=== PATIENT | male | born 1930 ===

== ENCOUNTER → 2017-09-22 | Outpatient (CLI) | payer OTHER | LOC: BHLMT 10:45 | PROVIDERS: ATTEND Internal Medicine Interventional Cardiology | DX: I35.0 Nonrheumatic aortic (valve) stenosis (principal) | CPT/HCPCS: 93306-PO ==

== ENCOUNTER 2017-12-14 15:54 | Emergency (ER) | payer OTHER ==
--- NOTE | 2017-12-14 16:34 | CPEKG ---
Heart Rate: 85 RR Interval: 706 QRSD Interval: 148 QT Interval: 440 QTC Interval: 524 QRS Keyes: 66 T Wave Keyes: -23 EKG Severity - ABNORMAL ECG - EKG Impression: ATRIAL FIBRILLATION EKG Impression: RIGHT BUNDLE BRANCH BLOCK Electronically Signed By: Fabiana Sanchez 14-Dec-2017 23:04:41
--- NOTE | 2017-12-14 16:44 | EDPHY ---
H & P Time Seen by Provider: 12/14/17 16:37 HPI/ROS: CHIEF COMPLAINT: Swollen and weeping legs with a rash HISTORY OF PRESENT ILLNESS: The patient is an 87 y/o male with a history of congestive heart failure complaining of bilateral leg swelling over the past few days. He has a history of bilateral pedal edema and the left lower extremity is usually more swollen than the right. The swelling usually increases during the day and nearly resolved at night. However, a few days ago , he developed increasing swelling in both legs and the swelling did not decreased at night. Today, he noticed both legs were weeping. He has associated pain in his legs, and mild shortness of breath on exertion. Able to do his normal activities and is not limited by the shortness of breath. He denies any other associated symptoms. He takes Lasix 20 mg every morning. He denies any recent change in his Lasix. He recently started taking testosterone. REVIEW OF SYSTEMS: A 10 point review of systems was performed and is negative with the exception of the elements mentioned in the history of present illness. 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 rectum removal for colon cancer, hernia causing penis retraction Social History: Son at bedside, lives in [place], lives alone Smoking Status: Current every day smoker Physical Exam: General Appearance: Alert, pleasant Eyes: Pupils equal and round, no conjunctival pallor ENT, Mouth: Mucous membranes moist Neck: Normal inspection Respiratory: Lungs are clear to auscultation Cardiovascular: Regularly irregular heart rate, 2/6 systolic murmur Gastrointestinal: Abdomen is soft and non-tender Neurological: A&O, nonfocal exam Skin: Warm and dry, no rash Extremities: Right lower extremity has 2+ pedal edema to ankle and calf. Left lower extremity has 3+ pedal edema to ankle and calf. Bilaterally the calf and feet are diffusely erythematic with a petechial rash to the anterior aspect of the calf. Vascular: Left great toe refill is brisk, unable to palpate pedal pulses Psychiatric: Mood and affect normal Constitutional: Initial Vital Signs Temperature (C) 36.7 C 12/14/17 16:09 Heart Rate 80 12/14/17 16:09 Respiratory Rate 19 12/14/17 16:09 Blood Pressure 135/56 H 12/14/17 16:09 O2 Sat (%) 95 12/14/17 16:09 O2 Delivery Mode Room Air Allergies/Adverse Reactions: No Known Allergies Allergy (Verified 12/14/17 16:07) Home Medications: Medication Instructions Recorded Brimonidine/Timolol [Combigan (*)] 1 drop RTEYE BID 08/31/15 Calcium Carb W/Vit D [Calcium Carb 500 mg PO DAILY 08/31/15 W/Vit D 500/200 (*)] Cholecalciferol Vit D3 [Vitamin D3 5,000 units PO DAILY 08/31/15 (*)] Ezetimibe/Simvastatin [Vytorin 1 each PO DAILY 08/31/15 10-20 mg Tablet] Furosemide [Lasix 20 MG (*)] 20 mg PO DAILY 08/31/15 Furosemide [Lasix 20 MG (*)] 20 mg PO DAILY@1300 PRN 08/31/15 Herbals/Supplements -Info Only 1 ea PO DAILY 08/31/15 Multivitamins [Multivitamin (*)] 1 each PO DAILY 08/31/15 Nebivolol HCl [Bystolic 5 mg (*)] 10 mg PO DAILY 08/31/15 Pioglitazone HCl [Actos 15mg (*)] 45 mg PO DAILY 08/31/15 Tamsulosin HCl [Flomax 0.4 MG (*)] 0.4 mg PO DAILY 08/31/15 Vit C/Dl-E AC/Lut/Copper/Znox 1 each PO BID 08/31/15 [Preservision Softgel] Aspirin [Aspirin 81mg (*)] 81 mg PO DAILY #0 tab 09/02/15 Atorvastatin Calcium 12/14/17 Cephalexin [Keflex (*)] 500 mg PO TID #30 cap 12/14/17 Eliquis 12/14/17 Testosterone 12/14/17 Medical Decision Making - Diagnostics EKG Interpretation: EKG interpreted by me reveals atrial fibrillation, rate 85, right bundle branch block, no ST/T changes. Interpretation: atrial fibrillation, right bundle branch block Imaging Results: Extremity Venous Study 12/14/17 17:39 Impression: 1. No deep venous thrombosis. 2. Diffuse edema and small Brandon's cyst. Findings discussed with Emergency Department physician, Fabiana Sanchez M.D., on December 14, 2017 at 1901. ED Course/Re-evaluation: The patient presents with swollen and weeping legs with a rash to the anterior aspect of both legs. He has a history of congestive heart failure. On exam, pedal pulses were unable to be palpated. Plan for ultrasound for pedal pulses and labs. Clinical presentation consistent with worsening congestive heart failure, possibly cellulitis in the left lower extremity. Refuses IV Lasix. Lasix will be available for this patient at any time if he changes his mind. 1740: Bilateral pedal pulses were obtained bilaterally via Doppler. The patient continues to refuse Lasix. Plan for further analysis of his left leg for possible DVT at patient's request. I doubt that he has a DVT, given that he is on Eliquis. 184: Ultrasound was negative for DVT. Results discussed with the patient and his son. Bilateral pedal edema secondary to congestive heart failure. I will increase his Lasix to 20 mg twice daily. In addition, he may have an early left lower extremity cellulitis, so Keflex prescribed. 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 He will return to the emergency department for worsening symptoms or any concerns. Differential Diagnosis: Differential diagnosis includes does not limited to pulmonary edema, abscess, DVT, ulcer. - Data Points Laboratory Results: Laboratory Results 12/14/17 16:40 12/14/17 16:40 Medications Given: Discontinued Medications Cephalexin HCl (Keflex) 500 mg PO EDNOW ONE PRN Reason: Protocol Stop: 12/14/17 19:26 Last Admin: 12/14/17 19:51 Dose: 500 mg Furosemide (Lasix Injection) 20 mg IVP EDNOW ONE Stop: 12/14/17 17:01 Last Admin: 12/14/17 17:36 Dose: Not Given Departure - Departure Disposition: Home, Routine, Self-Care Clinical Impression: Pedal edema Cellulitis Qualifiers: Site of cellulitis: extremity Site of cellulitis of extremity: lower extremity Laterality: left Qualified Code(s): L03.116 - Cellulitis of left lower limb Condition: Good Instructions: Heart Failure (ED), Cellulitis (ED) Additional Instructions: Increase your furosemide to 1 tablet twice daily. Take the 1st dose in the morning and the 2nd dose at 4:00 p.m.. Take the increased dose on Wednesday and . Take the Keflex as prescribed. You may have an early skin infection called cellulitis. Return for fever, increased swelling, shortness of breath or any concerns. Referrals: CHRISTINA SERVIN [Primary Care Provider] - As per Instructions Prescriptions: Cephalexin [Keflex (*)] 500 mg PO TID #30 cap Report Scribed for: Fabiana Sanchez Report Scribed by: Alisha London Date of Report: 12/14/17 Time of Report: 16:44 Physician Review and Approval Statement: 12/14/17 16:44 Portions of this note were transcribed by a medical typist. I personally performed a history, physical exam, medical decision making, and confirmed accuracy of information the transcribed note.
[2017-12-14 16:53] LABS: PLATELET COUNT 103 10^3/uL (150-400)
[2017-12-14] MEDS ORDERED: FUROSEMIDE 20 MG/2 ML VIAL IVP ONE (17:00)
[2017-12-14] MEDS ORDERED: CEPHALEXIN 500 MG CAP PO ONE (19:25)
[2017-12-14 20:08] VITALS: BP 148/85; PULSE 81; RESP 18; TEMP 97.7; O2SAT 91
== END 2017-12-14 19:50 | disposition home or self-care (01) ==
DX: R60.0 Localized edema (principal); L03.116 Cellulitis of left lower limb; I50.9 Heart failure, unspecified; F17.200 Nicotine dependence, unspecified, uncomplicated; Z79.82 Long term (current) use of aspirin
CPT/HCPCS: 93005; 93971; 99285; J1940

== ENCOUNTER → 2018-09-27 | Outpatient (CLI) | payer OTHER | LOC: BHLMT 09:15 | PROVIDERS: ATTEND Internal Medicine Interventional Cardiology | DX: I48.91 Unspecified atrial fibrillation (principal); I35.9 Nonrheumatic aortic valve disorder, unspecified | CPT/HCPCS: 93306-PO ==